=== PATIENT | male | born 1950 | race Caucasian/White ===

== ENCOUNTER 2019-04-10 18:26 | Emergency (ER) | payer OTHER ==
--- NOTE | 2019-04-10 18:57 | ED Physician Documentation ---
PD HPI UPPER EXT INJURY - Stated complaint Stated Complaint: RT ARM LAC - History obtained from History obtained from: Patient - History of Present Illness Location: Right, Arm Type of injury: Laceration (Accidentally cut RUE with knife while pruning at home at 1pm today. Tetanus UTD.) Review of Systems Constitutional: reports: Reviewed and negative Ears: reports: Reviewed and negative Nose: reports: Reviewed and negative PD PAST MEDICAL HISTORY - Past Medical History Cardiovascular: Hypertension, High cholesterol Respiratory: None Endocrine/Autoimmune: Type 2 diabetes GI: None : None HEENT: None Psych: None Musculoskeletal: None Derm: None - Past Surgical History Past Surgical History: Yes Ortho: Hip replacement Cardiovascular: Other - Present Medications Home Medications: Ambulatory Orders Medication Instructions Recorded Confirmed Atenolol [Tenormin] 1 mg PO DAILY 11/25/15 11/25/15 Ondansetron Odt [Zofran] 4 mg TL Q6H PRN #10 tablet 11/25/15 Pravastatin [Pravachol] 1 mg PO DAILY 11/25/15 11/25/15 Vit A Palm,D3 in Cod Liver Oil [Sv 1 mg PO DAILY 11/25/15 11/25/15 Cod Liver Oil Softgel] Warfarin [Coumadin] 7.5 mg PO DAILY 11/25/15 11/25/15 metFORMIN [Glucophage] 1 mg PO BID 11/25/15 11/25/15 Hydrocodone/Acetaminophen [[place] 1 each PO Q6H PRN #20 tablet 06/15/16 5-325 Tablet] Mupirocin 1 applic TP TID #15 oint...g. 06/15/16 - Allergies Allergies/Adverse Reactions: Allergies Allergy/AdvReac Type Severity Reaction Status Date / Time No Known Drug Allergies Allergy Verified 04/10/19 18:58 - Social History Does the pt smoke?: No Smoking Status: Never smoker Does the pt drink ETOH?: No Does the pt have substance abuse?: No - Immunizations Immunizations are current?: Yes - POLST Patient has POLST: No PD ED PE NORMAL - Vitals Vital signs reviewed: Yes - General General: Alert and oriented X 3, No acute distress - Extremities Extremities: Other (There is a 1.5 cm laceration basically over the medial epicondyle of the elbow, he has intact strength in flexion and extension of the wrist, interosseous strength, and individual flexion of all the fingers. He has normal sensation in all areas of the hand.) - Neuro Neuro: Alert and oriented X 3, Normal speech - Psych Psych: Normal mood, Normal affect Results - Vitals Vitals: Vital Signs - 24 hr 04/10/19 18:45 Temperature 36.9 C Heart Rate 74 Respiratory 16 Rate Blood Pressure 108/73 O2 Saturation 99 Oxygen O2 Source Room air Procedures - Laceration (location) R arm Length in cm: 1.5 Wound type: Linear Neurovascular status: Sensory intact, Motor intact, Vascular intact Anesthesia: Lidocaine 1% with epi Wound Preparation: Irrigated copiously NS Skin layer closure: Nylon, Interrupted, Size #-0 - enter number (4-0), Sutures - enter # (3) Other: Tetanus UTD Complexity: Simple Departure - Departure Disposition: 01 Home, Self Care Clinical Impression: Laceration Condition: Good Record reviewed to determine appropriate education?: Yes Instructions: ED Laceration All Comments: Come back for any signs of infection which would include: Redness, swelling, drainage, increased pain, or fevers. You can wash it soap and water. Keep it covered and moist with bacitracin ointment which is available over the counter; avoid neosporin. Follow-up with your physician in about 14 days for suture removal.
[2019-04-10] MEDS ORDERED: LIDOCAINE 1%-EPI 1:100000 20 ML MDV SUBQ STA (19:00)
[2019-04-10 19:27] VITALS: BP 113/79
== END 2019-04-10 19:26 | disposition home or self-care (01) ==
LOC: ED 18:26
DX: S51.011A Laceration without foreign body of right elbow, initial encounter (principal); W26.0XXA Contact with knife, initial encounter; Y93.H2 Activity, gardening and landscaping; Y92.007 Garden or yard of unspecified non-institutional (private) residence as the place of occurrence of the external cause; I10 Essential (primary) hypertension; E11.9 Type 2 diabetes mellitus without complications; Z79.84 Long term (current) use of oral hypoglycemic drugs
CPT/HCPCS: 12001; 99283

== ENCOUNTER 2019-04-16 11:42 | Emergency (ER) | payer OTHER ==
[2019-04-16 12:02] VITALS: BP 103/62
[2019-04-16] MEDS ORDERED: LIDOCAINE 1% 2 ML VIAL MC ONE (12:23)
[2019-04-16] MEDS ORDERED: cefTRIAXone 1 GM VIAL IM STA (12:23)
--- NOTE | 2019-04-16 12:32 | ED Physician Documentation ---
PD HPI WOUND RECHECK - Stated complaint Stated Complaint: RT ARM STITCH IRRITATION - Chief complaint Chief Complaint: Wound - Histroy obtained from History obtained from: Patient - History of Present Illness Location: Other (R elbow) Timing - onset: Today Pain level max: 3 Pain level now: 2 Associated symptoms: Redness, Swelling. No: Fever, Drainage, Pain - Additional information Additional information: Sutures were placed 4 days ago. Redness and swelling started today. No fevers. No chills. Review of Systems Constitutional: denies: Fever, Chills Musculoskeletal: denies: Neck pain, Back pain PD PAST MEDICAL HISTORY - Past Medical History Cardiovascular: Hypertension, High cholesterol Respiratory: None Neuro: None Endocrine/Autoimmune: Type 2 diabetes GI: None : None HEENT: None Psych: None Musculoskeletal: None Derm: None - Past Surgical History Past Surgical History: Yes Ortho: Hip replacement Cardiovascular: Other - Present Medications Home Medications: Ambulatory Orders Medication Instructions Recorded Confirmed Atenolol [Tenormin] 1 mg PO DAILY 11/25/15 11/25/15 Ondansetron Odt [Zofran] 4 mg TL Q6H PRN #10 tablet 11/25/15 Pravastatin [Pravachol] 1 mg PO DAILY 11/25/15 11/25/15 Vit A Palm,D3 in Cod Liver Oil [Sv 1 mg PO DAILY 11/25/15 11/25/15 Cod Liver Oil Softgel] Warfarin [Coumadin] 7.5 mg PO DAILY 11/25/15 11/25/15 metFORMIN [Glucophage] 1 mg PO BID 11/25/15 11/25/15 Hydrocodone/Acetaminophen [[place] 1 each PO Q6H PRN #20 tablet 06/15/16 5-325 Tablet] Mupirocin 1 applic TP TID #15 oint...g. 06/15/16 Clindamycin HCl [Clindamycin 300MG 300 mg PO Q6H #28 capsule 04/16/19 CAP] - Allergies Allergies/Adverse Reactions: Allergies Allergy/AdvReac Type Severity Reaction Status Date / Time No Known Drug Allergies Allergy Verified 04/16/19 11:58 - Social History Does the pt smoke?: No Smoking Status: Never smoker Does the pt drink ETOH?: No Does the pt have substance abuse?: No - Immunizations Immunizations are current?: Yes - POLST Patient has POLST: No PD ED PE NORMAL - Vitals Vital signs reviewed: Yes - General General: Alert and oriented X 3, No acute distress - HEENT HEENT: Moist mucous membranes - Neck Neck: Supple, no meningeal sign - Cardiac Cardiac: RRR - Respiratory Respiratory: No respiratory distress, Clear bilaterally - Derm Derm: Warm and dry - Extremities Extremities: Other (Right elbow - Medial aspect is erythematous, mild swelling. No drainage from the wound. 4 x 4 centimeter area of erythema surrounding this. No lymphangitic spread. No streaking. Full range of motion of the joint pre sent without pain) - Neuro Neuro: Alert and oriented X 3 - Psych Psych: Normal mood, Normal affect Results - Vitals Vitals: Vital Signs - 24 hr 04/16/19 11:58 Temperature 36.9 C Heart Rate 89 Respiratory 16 Rate Blood Pressure 103/62 O2 Saturation 98 Oxygen O2 Source Room air PD MEDICAL DECISION MAKING - ED course Complexity details: considered differential, d/w patient ED course: Patient with a cellulitis of the right elbow. We will leave the sutures in place for now as there is no drainage. Will give a injection of Rocephin here. Will start on clindamycin for home. Warnings of infection and instructions on wound care given at bedside. Also counseled on how to minimize scarring. Patient counseled regarding signs and symptoms for which I believe and urgent re-evaluation would be necessary. Patient with good understanding of and agreement to plan and is comfortable going home at this time This document was made in part using voice recognition software. While efforts are made to proofread this document, sound alike and grammatical errors may occur. Departure - Departure Disposition: 01 Home, Self Care Clinical Impression: Cellulitis Qualifiers: Site of cellulitis: extremity Site of cellulitis of extremity: upper extremity Laterality: right Qualified Code(s): L03.113 - Cellulitis of right upper limb Condition: Good Instructions: ED Infec Skin Cellulitis Follow-Up: your,doctor in 2-3 days for wound check [Other] Prescriptions: Clindamycin HCl [Clindamycin 300MG CAP] 300 mg PO Q6H #28 capsule Comments: Take all antibiotics until gone. Start the oral antibiotics today. Follow-up with your doctor in 2 to 3 days for wound check or return here. Return sooner if you develop fevers, chills or red streaks on the arm.
== END 2019-04-16 12:48 | disposition home or self-care (01) ==
LOC: ED 11:42
DX: L03.113 Cellulitis of right upper limb (principal); I10 Essential (primary) hypertension; E11.9 Type 2 diabetes mellitus without complications; Z79.84 Long term (current) use of oral hypoglycemic drugs
CPT/HCPCS: 96372; 99283; 99284

== ENCOUNTER 2019-04-29 19:30 | Emergency (ER) | payer OTHER ==
--- NOTE | 2019-04-29 20:01 | ED Physician Documentation ---
PD HPI Fall - Stated complaint Stated Complaint: FALL/R SHOULDER INJURY - Chief complaint Chief Complaint: Trauma Hd/Nk - History obtained from History obtained from: Patient - History of Present Illness Mechanism of injury: Tripped Fall distance: Standing position (fell going up steps and fell backward about 5 steps, onto right shoulderblade area mainly. Denies head injury directly but is concerned since on DOAC.) Timing - onset: Today Injury(ies) location: Head, Right Upper Extremity (scapular area) Quality of pain: Aching (shoulder, not having headache.) Associated symptoms: No: LOC, AMS, Weakness, Paresthesias Worsens with: Movement Contributing factors: Anticoagulated. No: Intoxicated Review of Systems Skin: denies: Abrasion (s), Laceration (s) Musculoskeletal: denies: Neck pain, Back pain Neurologic: denies: Focal weakness, Numbness, Altered mental status, Headache PD PAST MEDICAL HISTORY - Past Medical History Past Medical History: Yes Cardiovascular: Hypertension, High cholesterol Respiratory: None Neuro: None Endocrine/Autoimmune: Type 2 diabetes GI: None : None HEENT: None Psych: None Musculoskeletal: None Derm: None - Past Surgical History Past Surgical History: Yes Ortho: Hip replacement Cardiovascular: Other - Present Medications Home Medications: Ambulatory Orders Medication Instructions Recorded Confirmed Atenolol [Tenormin] 1 mg PO DAILY 11/25/15 11/25/15 Ondansetron Odt [Zofran] 4 mg TL Q6H PRN #10 tablet 11/25/15 Pravastatin [Pravachol] 1 mg PO DAILY 11/25/15 11/25/15 Vit A Palm,D3 in Cod Liver Oil [Sv 1 mg PO DAILY 11/25/15 11/25/15 Cod Liver Oil Softgel] Warfarin [Coumadin] 7.5 mg PO DAILY 11/25/15 11/25/15 metFORMIN [Glucophage] 1 mg PO BID 11/25/15 11/25/15 Hydrocodone/Acetaminophen [[place] 1 each PO Q6H PRN #20 tablet 06/15/16 5-325 Tablet] Mupirocin 1 applic TP TID #15 oint...g. 06/15/16 Clindamycin HCl [Clindamycin 300MG 300 mg PO Q6H #28 capsule 04/16/19 CAP] Hydrocodone/Acetaminophen [[place] 1 each PO Q6H PRN #15 tablet 04/29/19 5-325 Tablet] - Allergies Allergies/Adverse Reactions: Allergies Allergy/AdvReac Type Severity Reaction Status Date / Time No Known Drug Allergies Allergy Verified 04/29/19 19:37 - Social History Does the pt smoke?: No Smoking Status: Never smoker Does the pt drink ETOH?: No Does the pt have substance abuse?: Yes Substance Use and Type: Marijuana - Immunizations Immunizations are current?: Yes - POLST Patient has POLST: No PD ED PE NORMAL - Vitals Vital signs reviewed: Yes - General General: Alert and oriented X 3, No acute distress, Well developed/nourished - HEENT HEENT: Pharynx benign, Other (no noted tenderness on scalp. ) - Neck Neck: Supple, no meningeal sign, No bony TTP, No adenopathy - Cardiac Cardiac: RRR - Respiratory Respiratory: Clear bilaterally, Other (no chestwall tenderness) - Abdomen Abdomen: Soft, Non tender - Back Back: No CVA TTP, No spinal TTP - Derm Derm: Normal color, Warm and dry - Extremities Extremities: Other (right scapula with tenderness but no deformity. Shoulder joint itslef is not tender. No noted shoulder deformity. ) - Neuro Neuro: Alert and oriented X 3, No motor deficit, No sensory deficit, Normal speech Results - Vitals Vitals: Oxygen O2 Source Room air - Rads (name of study) head CT Radiology: Prelim report reviewed (no ICH nor acute findings. ), EMP read contemporaneously, See rad report chest CT Radiology: Prelim report reviewed (no noted fractures nor organ injury), See rad report PD MEDICAL DECISION MAKING - ED course Complexity details: reviewed results, considered differential (on DOAC and fell with force, so will get head CT, without concussive symptoms. Has pain and tender at scapula, which is harder to see on plain exray, so opted for CT chest to evaluate for fractures. ), d/w patient Departure - Departure Disposition: 01 Home, Self Care Clinical Impression: Anticoagulant long-term use Accidental fall Qualifiers: Encounter type: initial encounter Qualified Code(s): W19.XXXA - Unspecified fall, initial encounter Contusion of right scapular region Qualifiers: Encounter type: initial encounter Qualified Code(s): S40.011A - Contusion of right shoulder, initial encounter Condition: Stable Record reviewed to determine appropriate education?: Yes Instructions: ED Contusion Shoulder Follow-Up: [facility] [Provider Group] Prescriptions: Hydrocodone/Acetaminophen [[place] 5-325 Tablet] 1 each PO Q6H PRN #15 tablet PRN Reason: Pain Comments: Sling for the shoulder with gentle range of motion a few times a day to prevent stiffness. No fracture seen on your x-ray. Presume it some muscular and soft tissue injury. Continue usual medications. Tylenol 4 times a day if needed for pain. Add hydrocodone if needed for worse pain. Recheck with your primary care or orthopedics if the shoulder is not improved over the next several days to week. Discharge Date/Time: 04/29/19 23:53
[2019-04-29] MEDS ORDERED: ACETAMINOPHEN 325 MG TABLET PO STA (20:06)
--- NOTE | 2019-04-29 21:04 | CT Report ---
Reason: fall and landed right scapula. On Pradaxa Procedure Date: 04/29/2019 Accession Number: [id number] / [id number] Procedure: CT - HEAD WO CPT Code: FULL RESULT: EXAM: CT HEAD EXAM DATE: 04/29/2019 08:37 PM. CLINICAL HISTORY: Trauma COMPARISON: None. TECHNIQUE: Multiaxial CT images were obtained from the foramen magnum to the vertex. Reformats: Sagittal and coronal. IV contrast: None. In accordance with CT protocol optimization, one or more of the following dose reduction techniques were utilized for this exam: automated exposure control, adjustment of mA and/or KV based on patient size, or use of iterative reconstructive technique. FINDINGS: PARENCHYMA: No acute hemorrhage, transcortical infarction or mass. Periventricular and white matter hypointensities are nonspecific but most consistent with chronic microvascular ischemic changes. EXTRA-AXIAL SPACES: No extra-axial fluid collections. No midline shift. VENTRICLES/SULCI: Enlargement of the lateral and third ventricles with prominence of the cortical sulci consistent mild cerebral volume loss. VASCULAR STRUCTURES: Arterial calcifications consistent with atherosclerosis. SINUSES: The visible paranasal sinuses and mastoid air cells are unremarkable. ORBITS: Unremarkable. BONES: No displaced acute calvarial fracture. OTHER: None. IMPRESSION: 1. No acute intracranial findings. 2. Cerebral atrophy and chronic microvascular ischemic changes. RADIA
--- NOTE | 2019-04-29 21:58 | CT Report ---
Reason: fall and landed right scapula Procedure Date: 04/29/2019 Accession Number: [id number] / [id number] Procedure: CT - CHEST WO CPT Code: FULL RESULT: EXAM: CT CHEST EXAM DATE: 04/29/2019 08:39 PM. CLINICAL HISTORY: Trauma. COMPARISONS: None. TECHNIQUE: Routine helical CT imaging was performed through the chest. IV contrast: None. Reconstructions: Coronal and sagittal. In accordance with CT protocol optimization, one or more of the following dose reduction techniques were utilized for this exam: automated exposure control, adjustment of mA and/or KV based on patient size, or use of iterative reconstructive technique. FINDINGS: Bones: No acute fracture. No suspicious osseous lesions. Resection of the left proximal clavicle and anterior aspect of the first rib. Sidewalls: Absence of the left pectoralis major muscle. Thyroid: The imaged thyroid is unremarkable. Heart: Advanced three-vessel coronary artery disease. Mediastinum: Unremarkable. Esophagus: Grossly unremarkable. Aorta: The ascending thoracic aorta is ectatic measuring up to 4.5 cm. The descending thoracic aorta is normal in caliber. Mild atherosclerosis. Pulmonary Arteries: The main pulmonary artery is normal in caliber. Central Airways: The trachea and central airways are patent. Lungs: There are a few scattered 1-2 mm solid pulmonary nodules. Pneumatoceles within the left lower lobe. Otherwise unremarkable. Pleura: No pleural effusion. No pneumothorax. Lymph nodes: No thoracic lymphadenopathy. Imaged abdomen: Nonobstructing right renal parenchymal calcification. Moderate atherosclerosis of the imaged abdominal aorta. Large volume stool throughout the imaged colon. IMPRESSION: 1. No acute fracture. 2. Status post resection of the left anterior first rib, proximal clavicle and the left pectoralis major muscle. 3. Advanced three-vessel coronary artery disease. 4. 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 5. There are a few scattered 1-2 mm solid pulmonary nodules. See below for recommendations. RECOMMENDATIONS: Recommend follow-up of the described nodule(s) according to the following guidelines: Fleischner Society Recommendations 2017 MacMahon et al. Radiology 2017 Solid Nodules-Low Risk Patients: <6 mm (single or multiple) - No routine follow-up* 6-8 mm (single) -CT at 6-12 months, then consider CT at 18-24 months 6-8mm (multiple) -CT at 3-6 months, then consider at CT 18-24 months >8 mm (single) -Consider CT, PET/CT, or tissue sampling at 3 months >8 mm (multiple) -CT at 3-6 months, then consider CT at 18-24 months Solid Nodules-High Risk Patients: <6 mm (single or multiple) -Optional CT at 12 months* 6-8 mm (single) -CT at 6-12 months, then CT at 18-24 months 6-8mm (multiple) -CT at 3-6 months, then CT at 18-24 months >8 mm (single) -Consider CT, PET/CT, or tissue sampling at 3 months >8 mm (multiple) -CT at 3-6 months, then at 18-24 months *Nodules < 6mm do not require routine follow-up, but suspicious nodule morphology, upper lobe location, or both may warrant 12 month follow-up IRENEA
[2019-04-29] MEDS ORDERED: HYDROcod/ACET 5/325 Prepack 4 PO STA (23:13)
[2019-04-29 23:50] VITALS: BP 109/69
== END 2019-04-29 23:53 | disposition home or self-care (01) ==
LOC: ED 19:30
DX: S40.011A Contusion of right shoulder, initial encounter (principal); W10.9XXA Fall (on) (from) unspecified stairs and steps, initial encounter; Y93.01 Activity, walking, marching and hiking; Z79.01 Long term (current) use of anticoagulants; I10 Essential (primary) hypertension; E11.9 Type 2 diabetes mellitus without complications; Z79.84 Long term (current) use of oral hypoglycemic drugs
CPT/HCPCS: 70450; 71250; 99284; A9270

== ENCOUNTER 2020-01-22 15:30 | Emergency (ER) | payer OTHER ==
[2020-01-22] MEDS ORDERED: fentaNYL 100 MCG/2 ML VIAL IVP STA ×3 (15:43→18:39)
--- NOTE | 2020-01-22 15:46 | ED Physician Documentation ---
PD HPI Fall - Stated complaint Stated Complaint: FALL FROM LADDER, BILAT LEG PAIN - Chief complaint Chief Complaint: Trauma Ext - History obtained from History obtained from: Patient - History of Present Illness Fall distance: 5 to 10ft Timing - onset: Today - Additional information Additional information: 69-year-old gentleman on Pradaxa for atrial fibrillation fell about 6 feet off a ladder. He says he fell directly on his heels and his heels were excruciatingly painful. He told the nurse he did not hit his head but tells me he did hit his head. He vacillates whether or not he has back pain. He is almost inconsolable from the lower extremity pain. Review of Systems Ten Systems: 10 systems reviewed and negative Throat: reports: Reviewed and negative Cardiac: reports: Reviewed and negative Respiratory: reports: Reviewed and negative PD PAST MEDICAL HISTORY - Past Medical History Cardiovascular: Hypertension, High cholesterol Respiratory: None Neuro: None Endocrine/Autoimmune: Type 2 diabetes GI: None : None HEENT: None Psych: None Musculoskeletal: None Derm: None - Past Surgical History Past Surgical History: Yes Ortho: Hip replacement Cardiovascular: Other - Present Medications Home Medications: Ambulatory Orders Medication Instructions Recorded Confirmed Ondansetron Odt [Zofran] 4 mg TL Q6H PRN #10 tablet 11/25/15 Pravastatin [Pravachol] 1 mg PO DAILY 11/25/15 11/25/15 Vit A Palm,D3 in Cod Liver Oil [Sv 1 mg PO DAILY 11/25/15 11/25/15 Cod Liver Oil Softgel] Warfarin [Coumadin] 7.5 mg PO DAILY 11/25/15 11/25/15 atenoloL [Tenormin] 1 mg PO DAILY 11/25/15 11/25/15 metFORMIN [Glucophage] 1 mg PO BID 11/25/15 11/25/15 Hydrocodone/Acetaminophen [[place] 1 each PO Q6H PRN #20 tablet 06/15/16 5-325 Tablet] Mupirocin 1 applic TP TID #15 oint...g. 06/15/16 Clindamycin HCl [Clindamycin 300MG 300 mg PO Q6H #28 capsule 04/16/19 CAP] Hydrocodone/Acetaminophen [[place] 1 each PO Q6H PRN #15 tablet 04/29/19 5-325 Tablet] - Allergies Allergies/Adverse Reactions: Allergies Allergy/AdvReac Type Severity Reaction Status Date / Time No Known Drug Allergies Allergy Verified 01/22/20 15:36 - Social History Does the pt smoke?: No Smoking Status: Never smoker Does the pt drink ETOH?: No Does the pt have substance abuse?: Yes - Family History Family history: reports: Non contributory - Immunizations Immunizations are current?: Yes - POLST Patient has POLST: No PD ED PE NORMAL - Vitals Vital signs reviewed: Yes - General General: Alert and oriented X 3, Other (He is crying and in a lot of pain) - HEENT HEENT: PERRL, EOMI - Neck Neck: No bony TTP (But placed in a c-collar pending imaging given distracting injury) - Respiratory Respiratory: No respiratory distress, Clear bilaterally - Abdomen Abdomen: Non tender - Back Back: No spinal TTP - Extremities Extremities: Other (Profoundly tender about both calcanei without obvious deformity, sequela of prior knee replacements without tenderness or limited ra nge of motion at the knees.) - Neuro Neuro: Alert and oriented X 3, Normal speech Eye Opening: Spontaneous Motor: Obeys Commands Results - Vitals Vitals: Vital Signs - 24 hr 01/22/20 01/22/20 01/22/20 15:31 16:00 16:30 Temperature 36.7 C Heart Rate 122 H 126 H 93 Respiratory 26 H 15 16 Rate Blood Pressure 149/98 H 119/83 H 131/71 H O2 Saturation 99 96 96 01/22/20 01/22/20 01/22/20 17:00 17:30 18:00 Temperature 37 C Heart Rate 115 H 120 H 118 H Respiratory 15 20 16 Rate Blood Pressure 123/85 H 135/97 H 142/88 H O2 Saturation 100 94 95 Oxygen O2 Source Room air - Labs Labs: Laboratory Tests 01/22/20 01/22/20 01/22/20 15:45 15:45 17:36 WBC 8.8 RBC 4.31 L Hgb 14.2 Hct 41.5 L MCV 96.3 H MCH 32.9 H MCHC 34.2 RDW 13.6 Plt Count 234 MPV 9.5 Neut # (Auto) 4.7 Lymph # (Auto) 3.2 [place] # (Auto) 0.7 Eos # (Auto) 0.1 Baso # (Auto) 0.1 Absolute Nucleated RBC 0.00 Nucleated RBC % 0.0 Sodium 134 L Potassium 4.9 Chloride 99 L Carbon Dioxide 20 L Anion Gap 15.0 H BUN 20 Creatinine 1.1 Estimated GFR (MDRD) 66 L Glucose 200 H Calcium 9.4 Total Bilirubin 1.3 H AST 37 ALT 21 Alkaline Phosphatase 76 Total Protein 7.8 Albumin 4.4 Globulin 3.4 Albumin/Globulin Ratio 1.3 Lipase 36 Urine Color YELLOW Urine Clarity CLEAR Urine pH 7.0 Ur Specific [place] <=1.005 Urine Protein NEGATIVE Urine Glucose (UA) NEGATIVE Urine Ketones NEGATIVE Urine Occult Blood NEGATIVE Urine Nitrite NEGATIVE Urine Bilirubin NEGATIVE Urine Urobilinogen 0.2 (NORMAL) Ur Leukocyte Esterase NEGATIVE Ur Microscopic Review NOT INDICATED Urine Culture Comments NOT INDICATED - Rads (name of study) CT Head Radiology: EMP read contemporaneously (NAD) CT C spine Radiology: EMP read contemporaneously (multileve DJD/DDD, NAD) CT T/L Spine Radiology: EMP read contemporaneously (DISH and DDD/DJD, NAD) CT Chest/abd/pelv Radiology: EMP read contemporaneously (Mildly dilated aortic root, right nephrolithiasis, atherosclerosis with celiac artery stenosis, no acute traumatic disease.) CT of both calcanei Radiology: EMP read contemporaneously (Acute fracture of the inferior medial right calcaneus involving the plantar fascial origin and 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 The left calcaneus is highly comminuted with not much displacement.) Procedures - Splint (location) BLE Splint applied by: Tech (Both lower legs and ankles were placed in bulky Olivares splints by the tech.) PD MEDICAL DECISION MAKING - ED course ED course: 69-year-old gentleman with a fall from height, he is anticoagulated. High suspicion for bilateral calcaneal injuries based on his presentation and exam, also high suspicion for other injuries given the fall from height, anticoagulated status, and high mechanism. CT "pierre scan was done as well as CTs of both calcanei. No traumatic injuries other than the calcanei. The calcanei will be very difficult to treat especially given the significant comminution of the left. He was placed in bilateral bulky Olivares dressings, pain was controlled with divided doses of narcotics. He was in atrial fibrillation with rapid ventricular response and administered 5 mg of IV metoprolol. Accepted by Dr. Santiago to [facility] ER at approximately 5:40 PM. [place] were completed. He is stable for transport. - Critical Care Time(min): 40 Time Includes: Direct patient care, Review records, Reassess patient, Document care, Coordinate care, Medical consult, Family consult for tx dec Data interpretation: Labs, Pulse ox Procedures included in critical care time: Peripheral IV Departure - Departure Disposition: 02 Transfer Acute Care Hosp Clinical Impression: Adequate anticoagulation on anticoagulant therapy, Fall from height of greater than 3 feet, Atrial fibrillation with rapid ventricular response Right calcaneal fracture Qualifiers: Encounter type: initial encounter Calcaneus location: unspecified portion of calcaneus Fracture type: closed Fracture alignment: displaced Qualified Code(s): S92.001A - Unspecified fracture of right calcaneus, initial encounter for closed fracture Left calcaneal fracture Qualifiers: Encounter type: initial encounter Calcaneus location: unspecified portion of calcaneus Fracture type: closed Fracture alignment: displaced Qualified Code(s): S92.002A - Unspecified fracture of left calcaneus, initial encounter for closed fracture Condition: Serious
[2020-01-22 15:53] LABS: BASOPHILS # (AUTO) 0.1 10^3/uL (0.0-0.1); BASOPHILS % (AUTO) 0.6 %; EOSINOPHILS # (AUTO) 0.1 10^3/uL (0.0-0.7); EOSINOPHILS % (AUTO) 0.7 %; HGB - HEMOGLOBIN 14.2 g/dL (14.0-18.0); LYMPHOCYTES # (AUTO) 3.2 10^3/uL (1.5-3.5); LYMPHOCYTES % (AUTO) 36.1 %; MEAN CORPUSCULAR HEMOGLOBIN 32.9 pg (27.0-31.0); MEAN CORPUSCULAR HGB CONC 34.2 g/dL (32.0-36.0); MEAN CORPUSCULAR VOLUME 96.3 fL (80.0-94.0); MEAN PLATELET VOLUME 9.5 fL (7.4-11.4); MONOCYTES # (AUTO) 0.7 10^3/uL (0.0-1.0); MONOCYTES % (AUTO) 8.3 %; NEUTROPHILS # (AUTO) 4.7 10^3/uL (1.5-6.6); PLT - PLATELET COUNT 234 10^3/uL (130-450); RED BLOOD COUNT 4.31 10^6/uL (4.70-6.10); RED CELL DISTRIBUTION WIDTH 13.6 % (12.0-15.0); WHITE BLOOD COUNT 8.8 x10^3/uL (4.8-10.8)
[2020-01-22 16:03] LABS: ALBUMIN 4.4 g/dL (3.2-5.5); ALBUMIN/GLOBULIN RATIO 1.3 (1.0-2.2); BILIRUBIN,TOTAL 1.3 mg/dL (0.2-1.0); CALCIUM 9.4 mg/dL (8.5-10.3); CREATININE 1.1 mg/dL (0.6-1.2); TOTAL PROTEIN 7.8 g/dL (6.7-8.2)
[2020-01-22] MEDS ORDERED: IOVERSOL 320 100 ML VIAL IVP ONE ×2 (16:09→19:46)
[2020-01-22] MEDS ORDERED: HYDROmorphone 1 MG/ML CARPUJECT IVP STA (16:37)
--- NOTE | 2020-01-22 17:25 | CT Report ---
Reason: fall from height, multisystem trauma Procedure Date: 01/22/2020 Accession Number: [id number] / [id number] Procedure: CT - HEAD WO CPT Code: Final Report FULL RESULT: EXAM: CT HEAD EXAM DATE: 01/22/2020 04:51 PM. CLINICAL HISTORY: Fall from height, multisystem trauma. Posterior head pain. COMPARISON: HEAD W/O 04/29/2019 8:21 PM. TECHNIQUE: Multiaxial CT images were obtained from the foramen magnum to the vertex. Reformats: Sagittal and coronal. IV contrast: None. In accordance with CT protocol optimization, one or more of the following dose reduction techniques were utilized for this exam: automated exposure control, adjustment of mA and/or KV based on patient size, or use of iterative reconstructive technique. FINDINGS: Parenchyma: No acute intracranial abnormality identified. No acute hemorrhage, mass-effect, or midline shift. Probable age-related diffuse parenchymal volume loss. Minimal low attenuation in the periventricular white matter. Velazquez-white differentiation appears maintained. Extraaxial Spaces: No acute extra-axial collection. Ventricles: Appropriate in size and configuration. Sinuses and Orbits: Imaged paranasal sinuses, orbits, and mastoids show no significant abnormality. Bones: No depressed skull fracture. Other: None. IMPRESSION: No acute intracranial abnormality identified. No significant change. RADIA
--- NOTE | 2020-01-22 17:31 | CT Report ---
Reason: fall from height, multisystem trauma Procedure Date: 01/22/2020 Accession Number: [id number] / [id number] Procedure: CT - CERVICAL SPINE WO CPT Code: Final Report FULL RESULT: EXAM: CT CERVICAL SPINE WITHOUT CONTRAST DATE: 01/22/2020 04:51 PM. HISTORY: Fall from height, multisystem trauma. COMPARISONS: HEAD W/O 04/29/2019 8:21 PM. TECHNIQUE: Thin-section axial images were acquired of the cervical spine without contrast. Post-processing: Coronal and sagittal reformats. Other: None. In accordance with CT protocol optimization, one or more of the following dose reduction techniques were utilized for this exam: automated exposure control, adjustment of mA and/or KV based on patient size, or use of iterative reconstructive technique. FINDINGS: Alignment: No scoliosis or spondylolisthesis. Bones: Multilevel degenerative changes. No fractures. Interspace Levels/Facets: C1-C2: Severe arthropathy, particularly along the left atlantooccipital joint. C2-C3: Ankylosis of the C2 and C3 vertebral bodies, and some ankylosis of the posterior elements as well. No central canal or neural foraminal stenosis. C3-C4: Anterior and posterior disk osteophyte complexes. There is mild central canal stenosis. Moderate to severe bilateral facet disease, with the ankylosis. Minimal bilateral neural foraminal stenosis. C4-C5: Moderate to severe left facet disease and uncovertebral hypertrophy. Moderate to severe left neural foraminal stenosis and some left lateral recess stenosis. C5-C6: Minimal disk height loss. Moderate severe bilateral facet disease. Mild to moderate bilateral neural foraminal stenosis. C6-C7: Moderate to severe disk height loss with anterior and posterior disk osteophyte complexes. Minimal central canal stenosis. Bilateral facet disease, more on the left, no significant neural foraminal stenosis. C7-T1: Moderate severe disk height loss. Mild bilateral facet disease. Mild to moderate left neuroforaminal stenosis. Musculature: Normal. No fatty atrophy. Other: The paravertebral and prevertebral soft tissues are unremarkable. The lung apices are clear. IMPRESSION: No fracture or subluxation. RADIA
--- NOTE | 2020-01-22 17:35 | CT Report ---
Reason: fall from height, multisystem trauma Procedure Date: 01/22/2020 Accession Number: [id number] / [id number] Procedure: CT - Abdomen/Pelvis W CPT Code: Final Report FULL RESULT: EXAM: CT ABDOMEN AND PELVIS EXAM DATE: 01/22/2020 04:51 PM. CLINICAL HISTORY: Fall from ladder. Multisystem trauma. COMPARISONS: None. TECHNIQUE: Routine helical CT imaging was performed through the abdomen and pelvis. IV contrast: 100 cc of Optiray 320. Enteric contrast: No. Reconstructions: Coronal and sagittal. In accordance with CT protocol optimization, one or more of the following dose reduction techniques were utilized for this exam: automated exposure control, adjustment of mA and/or KV based on patient size, or use of iterative reconstructive technique. FINDINGS: Liver: Normal. No masses. Gallbladder/Bile Ducts: Unremarkable. Spleen: Normal. Pancreas: Normal. Adrenal Glands: Normal. Kidneys: Nonobstructing 4 mm intrarenal stone, mid right kidney, otherwise unremarkable. Peritoneal Cavity/Bowel: Normal. No free fluid, free air or adenopathy. No masses or acute inflammatory process. The appendix is well visualized and normal. Pelvic Organs: Normal. The bladder and visualized pelvic organs are within normal limits. Vasculature: No aortic aneurysm. Mild to moderate atherosclerotic calcification. 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 Bones: No fracture identified. Fused SI joints noted. Degenerative disk disease at L4-L5. Lower lumbar facet arthropathy. Other: None. IMPRESSION: 1. No acute abnormalities of the abdomen and pelvis. 2. Right nephrolithiasis. 3. 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 4. Degenerative disk disease, L4-L5. RADIA
--- NOTE | 2020-01-22 17:40 | CT Report ---
Reason: fall from height, multisystem trauma Procedure Date: 01/22/2020 Accession Number: [id number] / [id number] Procedure: CT - THORACIC SPINE WO CPT Code: Final Report FULL RESULT: EXAM: CT THORACIC SPINE WITHOUT CONTRAST EXAM DATE: 01/22/2020 04:51 PM. CLINICAL HISTORY: Fall from ladder. Multisystem trauma. COMPARISONS: None. TECHNIQUE: Thin-section axial images were acquired of the thoracic spine from C7 to L1 without contrast. Post-processing: Coronal and sagittal reformats. Other: None. In accordance with CT protocol optimization, one or more of the following dose reduction techniques were utilized for this exam: automated exposure control, adjustment of mA and/or KV based on patient size, or use of iterative reconstructive technique. FINDINGS: Alignment: No scoliosis or spondylolisthesis. Bones: No fractures. DISH. Rigid spine T6-T11 with anterior hyperostosis and fusion. Disk Levels/Facets: Endplate spurring. Mild scattered disk space narrowing. Other: See CT chest report. IMPRESSION: 1. No acute thoracic spine abnormalities. 2. DISH, with rigid spine T6-T11. RADIA
--- NOTE | 2020-01-22 17:42 | CT Report ---
Reason: fall from height, multisystem trauma Procedure Date: 01/22/2020 Accession Number: [id number] / [id number] Procedure: CT - CHEST W CPT Code: Final Report FULL RESULT: EXAM: CT CHEST EXAM DATE: 01/22/2020 04:51 PM. CLINICAL HISTORY: Fall from ladder COMPARISONS: CHEST W/O 04/29/2019 8:24 PM ABDOMEN/PELVIS W 01/22/2020 4:12 PM. TECHNIQUE: Routine helical CT imaging was performed through the chest. IV contrast: 100 mL Optiray 320. Reconstructions: Coronal and sagittal. In accordance with CT protocol optimization, one or more of the following dose reduction techniques were utilized for this exam: automated exposure control, adjustment of mA and/or KV based on patient size, or use of iterative reconstructive technique. FINDINGS: Lungs/Pleura: No consolidation, pleural effusion or pneumothorax. Cystic abnormality in the left lower lobe is unchanged. Bibasilar reticulation is unchanged. Mediastinum: The heart is normal in size. Prominent three-vessel coronary calcifications. No lymphadenopathy. No aortic dissection. Mild dilated aortic root measures about 4.6 cm. Bones: No acute fracture identified. Old deformity her resection of the left clavicle medially, as before. Prior partial resection of the left first rib. Healing fracture of the anterior aspect left sixth rib. There are fused anterior syndesmophytes in the mid and lower thoracic spine. Visualized Abdomen: See separately dictated CT. Other: None. IMPRESSION: 1. No acute abnormality. 2. Mildly dilated aortic root. RADIA
--- NOTE | 2020-01-22 17:44 | CT Report ---
Reason: fall from height, multisystem trauma Procedure Date: 01/22/2020 Accession Number: [id number] / [id number] Procedure: CT - LUMBAR SPINE WO CPT Code: Final Report FULL RESULT: EXAM: CT LUMBAR SPINE WITHOUT CONTRAST EXAM DATE: 01/22/2020 04:51 PM. CLINICAL HISTORY: Fall from ladder. Multisystem trauma. COMPARISONS: None. TECHNIQUE: Thin-section axial images were acquired of the lumbar spine from T12 to S1 without contrast. Post-processing: Coronal and sagittal reformats. Other: None. In accordance with CT protocol optimization, one or more of the following dose reduction techniques were utilized for this exam: automated exposure control, adjustment of mA and/or KV based on patient size, or use of iterative reconstructive technique. FINDINGS: Alignment: No scoliosis or spondylolisthesis. Bones: Five [id number] lumbar vertebral bodies are present. No fractures. Articulating transverse processes at L1. Disk Levels/Facets: T12-L1: Unremarkable. L1-L2: Unremarkable. L2-L3: Unremarkable. L3-L4: Unremarkable. L4-L5: Moderate disk space narrowing. Bilateral facet arthropathy. L5-S1: Bilateral facet arthropathy. Musculature: Normal. No fatty atrophy. Other: See CT abdomen/pelvis report. IMPRESSION: 1. No acute lumbar spine abnormalities. 2. Moderate degenerative disk disease at L4-L5. 3. Lower lumbar facet arthropathy. RADIA
[2020-01-22 17:47] LABS: BILIRUBIN,URINE NEGATIVE (NEGATIVE); GLUCOSE, URINE (UA) NEGATIVE (NEGATIVE); KETONES,URINE (UA) NEGATIVE (NEGATIVE); LEUKOCYTE ESTERASE, URINE NEGATIVE (NEGATIVE); NITRITE,URINE NEGATIVE (NEGATIVE); OCCULT BLOOD,URINE NEGATIVE (NEGATIVE); PROTEIN,URINE NEGATIVE (NEGATIVE); UROBILINOGEN,URINE 0.2 (NORMAL) E.U./dL (NORMAL)
[2020-01-22 17:48] LABS: CLARITY,URINE CLEAR (CLEAR)
[2020-01-22] MEDS ORDERED: METOPROLOL 5 MG/5 ML VIAL IVP STA (17:51)
--- NOTE | 2020-01-22 18:26 | CT Report ---
Reason: Left calcaneus injury Procedure Date: 01/22/2020 Accession Number: [id number] / [id number] Procedure: CT - LOWER EXTREMITY WO - LT CPT Code: Final Report FULL RESULT: EXAM: LEFT ANKLE/HINDFOOT CT WITHOUT CONTRAST EXAM DATE: 01/22/2020 04:51 PM. CLINICAL HISTORY: Left calcaneus injury. COMPARISON: None. TECHNIQUE: Thin-section axial images were acquired of the ankle/hindfoot without contrast. Post-processing: Coronal and sagittal reformats. Other: None. In accordance with CT protocol optimization, one or more of the following dose reduction techniques were utilized for this exam: automated exposure control, adjustment of mA and/or KV based on patient size, or use of iterative reconstructive technique. FINDINGS: Bones: The patient has an old healed fracture of the distal right tibia. The patient has a highly comminuted fracture of the calcaneus. Fracture lines extend into the posterior subtalar joint, the middle subtalar joint and the calcaneocuboid joint. The majority of the fracture fragments are nondisplaced. The plantar fascial origin is but nondisplaced. A moderate-sized plantar calcaneal spur is present. Joints: The joint spaces are preserved. No calcified loose bodies. No large effusion. Musculature: Normal. No fatty atrophy. Other: Arterial calcifications indicate atherosclerosis. Calcific tendinosis is at the Achilles insertion. IMPRESSION: Highly comminuted fracture of the left calcaneus with little displacement. RADIA
--- NOTE | 2020-01-22 18:31 | CT Report ---
Reason: Right calcaneus injury Procedure Date: 01/22/2020 Accession Number: [id number] / [id number] Procedure: CT - LOWER EXTREMITY WO - RT CPT Code: Final Report FULL RESULT: EXAM: RIGHT ANKLE CT WITHOUT CONTRAST EXAM DATE: 01/22/2020 04:51 PM. CLINICAL HISTORY: Right calcaneus injury. Fall from ladder today. Bilateral heel pain. COMPARISON: None. TECHNIQUE: Thin-section axial images were acquired of the ankle without contrast. Post-processing: Coronal and sagittal reformats. Other: None. In accordance with CT protocol optimization, one or more of the following dose reduction techniques were utilized for this exam: automated exposure control, adjustment of mA and/or KV based on patient size, or use of iterative reconstructive technique. FINDINGS: Bones: There appears to be an old healed fracture of the distal fifth metatarsal. The distal tibial diaphysis has an old healed fracture that has healed with 40% offset in the anterior to posterior plane. A moderate-sized plantar calcaneal spur is present. The right calcaneus is fractured on the inferior medial side involving the plantar fascia origin. The fragment is only displaced anteriorly by 3 mm (series 15, image 55). The patient is moderately osteopenic. Joints: The anterior subtalar joint has severe joint space narrowing, severe osteophyte formation, and periarticular cyst formation. There is also ossicle at the intersection of the cuboid, calcaneus, navicular, and talus with degenerative change around the ossicle. Periarticular cyst formation is in the distal tibia. Musculature: Normal. No fatty atrophy. Other: Arterial calcifications indicate atherosclerosis. IMPRESSION: 1. Acute fracture of the inferior medial right calcaneus involving the plantar fascia origin. 2. 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 RADIA
[2020-01-22 19:12] VITALS: BP 130/87
== END 2020-01-22 19:19 | disposition short-term general hospital (02) ==
LOC: ED 15:30
DX: S92.001A Unspecified fracture of right calcaneus, initial encounter for closed fracture (principal); S92.002A Unspecified fracture of left calcaneus, initial encounter for closed fracture; W11.XXXA Fall on and from ladder, initial encounter; I48.91 Unspecified atrial fibrillation; Z79.01 Long term (current) use of anticoagulants; M19.071 Primary osteoarthritis, right ankle and foot; M76.62 Achilles tendinitis, left leg; M50.30 Other cervical disc degeneration, unspecified cervical region; M48.02 Spinal stenosis, cervical region; M51.36 Other intervertebral disc degeneration, lumbar region; M48.14 Ankylosing hyperostosis [Forestier], thoracic region; I10 Essential (primary) hypertension; E11.9 Type 2 diabetes mellitus without complications; Z79.84 Long term (current) use of oral hypoglycemic drugs; Z96.653 Presence of artificial knee joint, bilateral
CPT/HCPCS: 36415; 70450; 71260; 72125; 72128; 72131; 73700; 74177; 80053; 81003; 83690; 85025; 96374; 96375; 96376; 99285; 99291; J1170; Q9967; 81001; 87086

== ENCOUNTER 2020-01-22 19:21 | Outpatient (CLI) | payer OTHER | END 2020-01-22 19:22 | disposition short-term general hospital (02) | LOC: EMS 19:21 | PROVIDERS: ATTEND Surgery | DX: S92.002A Unspecified fracture of left calcaneus, initial encounter for closed fracture (principal); S92.001A Unspecified fracture of right calcaneus, initial encounter for closed fracture; W11.XXXA Fall on and from ladder, initial encounter | CPT/HCPCS: A0425; A0426 ==

== ENCOUNTER 2020-09-10 09:04 | Emergency (ER) | payer OTHER ==
--- NOTE | 2020-09-10 09:49 | ED Physician Documentation ---
PD HPI NECK PAIN - Stated complaint Stated Complaint: NECK PX - Chief complaint Chief Complaint: General - History obtained from History obtained from: Patient - History of Present Illness Timing - onset: How many days ago (several days left sided neck pain up to occipital area. Worse with ROM. No skin rash nor sores, no fever. Has had neck pain similarly for several months since fall injury earlier in the year. No new injury but pain increased recently. No radiation to arms, nor arm weakness/numbness.) Timing - details: Gradual onset, Waxing and waning Location: Upper, Mid, Left Quality: Pain, Spasm. No: Tearing, Aching Associated symptoms: No: Fever, Weakness, Numbness Contributing factors: Trauma (earlier in the year with normal CT at that time.). No: Lifting, Twisting Similar symptoms before: No diagnosis (neck pain at times) Recently seen: Not recently seen Review of Systems Constitutional: denies: Fever, Chills Nose: denies: Rhinorrhea / runny nose, Congestion Throat: denies: Sore throat Respiratory: denies: Cough GI: denies: Abdominal Pain, Nausea, Vomiting, Diarrhea Skin: denies: Rash Musculoskeletal: reports: Neck pain. denies: Back pain Neurologic: denies: Focal weakness, Numbness, Altered mental status, Headache PD PAST MEDICAL HISTORY - Past Medical History Cardiovascular: Hypertension, High cholesterol Respiratory: None Neuro: None Endocrine/Autoimmune: Type 2 diabetes GI: None : None HEENT: None Psych: None Musculoskeletal: None Derm: None - Past Surgical History Past Surgical History: Yes Ortho: Hip replacement Cardiovascular: Other - Present Medications Home Medications: Ambulatory Orders Medication Instructions Recorded Confirmed Ondansetron Odt [Zofran] 4 mg TL Q6H PRN #10 tablet 11/25/15 Pravastatin [Pravachol] 1 mg PO DAILY 11/25/15 11/25/15 Vit A Palm,D3 in Cod Liver Oil [Sv 1 mg PO DAILY 11/25/15 11/25/15 Cod Liver Oil Softgel] Warfarin [Coumadin] 7.5 mg PO DAILY 11/25/15 11/25/15 atenoloL [Tenormin] 1 mg PO DAILY 11/25/15 11/25/15 metFORMIN [Glucophage] 1 mg PO BID 11/25/15 11/25/15 Hydrocodone/Acetaminophen [[place] 1 each PO Q6H PRN #20 tablet 06/15/16 5-325 Tablet] Mupirocin 1 applic TP TID #15 oint...g. 06/15/16 Clindamycin HCl [Clindamycin 300MG 300 mg PO Q6H #28 capsule 04/16/19 CAP] Hydrocodone/Acetaminophen [[place] 1 each PO Q6H PRN #15 tablet 04/29/19 5-325 Tablet] HYDROcod/ACETAM 5/325 [[place] 5/325] 1 ea PO Q6H PRN #15 tablet 09/10/20 dexAMETHasone [Decadron] 4 mg PO DAILY #5 tablet 09/10/20 tiZANidine [Zanaflex] 4 mg PO BID PRN #20 tablet 09/10/20 - Allergies Allergies/Adverse Reactions: Allergies Allergy/AdvReac Type Severity Reaction Status Date / Time No Known Drug Allergies Allergy Verified 09/10/20 09:18 - Social History Does the pt smoke?: No Smoking Status: Never smoker Does the pt drink ETOH?: No Does the pt have substance abuse?: Yes - Immunizations Immunizations are current?: Yes - POLST Patient has POLST: No PD ED PE NORMAL - Vitals Vital signs reviewed: Yes - General General: Alert and oriented X 3, No acute distress (but does appear uncomfortable with ROM of the neck. Tender left upper neck muscle. No trigger point per se. No rash nor redness. ), Well developed/nourished - Neck Neck: Supple, no meningeal sign, No adenopathy - Cardiac Cardiac: RRR, No murmur - Respiratory Respiratory: Clear bilaterally - Derm Derm: Normal color, Warm and dry, No rash - Neuro Neuro: Alert and oriented X 3, No motor deficit, No sensory deficit, Normal speech Results - Vitals Vitals: Oxygen O2 Source Room air - Rads (name of study) cervical CT Radiology: Prelim report reviewed (arthritic changes; no acute process), See rad report PD MEDICAL DECISION MAKING - ED course Complexity details: reviewed results, considered differential, d/w patient Departure - Departure Disposition: 01 Home, Self Care Clinical Impression: Neck pain, Arthritis of neck Condition: Stable Record reviewed to determine appropriate education?: Yes Instructions: ED Neck Back Pain General Prescriptions: dexAMETHasone [Decadron] 4 mg PO DAILY #5 tablet HYDROcod/ACETAM 5/325 [[place] 5/325] 1 ea PO Q6H PRN #15 tablet PRN Reason: Pain tiZANidine [Zanaflex] 4 mg PO BID PRN #20 tablet PRN Reason: Spasms Comments: Your CT scan showed arthritic changes without any acute bony changes. We will assume arthritis in the neck is causing some ear pain as well as some muscle irritation. We will try some anti-inflammatories for several days. Since you are on a blood thinner, will we will use steroid anti-inflammatories rather than NSAIDs. This may cause a rise in your blood sugar, and if it does then you can just discontinue the steroid. Otherwise use Tylenol every 4-6 hours if needed for pain or hydrocodone if needed for worse pain. Add tizanidine if needed for spasms and stiffness. Recheck if not improved over the next several days to a week and follow-up with your primary care. Discharge Date/Time: 09/10/20 11:07
[2020-09-10] MEDS ORDERED: CHERRY SYRUP 10 ML UDC PO ONE (10:02)
[2020-09-10] MEDS ORDERED: DEXAMETHASONE 10 MG/ML VIAL PO STA (10:02)
[2020-09-10] MEDS ORDERED: ACETAMINOPHEN 325 MG TABLET PO STA (10:02)
[2020-09-10] MEDS ORDERED: methocarbamoL 500 MG TABLET PO STA (10:02)
[2020-09-10] MEDS ORDERED: HYDROcod/ACETAM 5/325 MG TABLET PO STA (10:02)
--- NOTE | 2020-09-10 10:51 | CT Report ---
PROCEDURE: CERVICAL SPINE WO INDICATIONS: ongoing neck pain, worse few days TECHNIQUE: Noncontrast 3 mm thick sections acquired from the skull base to the T4 level. Sagittal and coronal r eformats were then constructed. For radiation dose reduction, the following was used: automated exp osure control, adjustment of mA and/or kV according to patient size. COMPARISON: CT cervical spine, 01/22/2020. FINDINGS: Image quality: Excellent. Bones: No fractures or dislocations. There is grade 1 anterolisthesis of C5 on C6. Degenerative dis c disease is present, severe at C6-7 and C7-T1, moderate at C3-C4 and C5-C6. There is severe left dionte antooccipital joint degeneration. Bilateral facet arthropathy throughout the cervical spine, most pro nounced at C3-C4, C4-C5, C5-C6 and C6-C7 on the left. There is yhes-jo-xnoccomf central canal stenosi s at C3-C4, C6-C7 and C7-T1. Multilevel foraminal stenoses, moderate to severe at C3-4-C5 on the left , C5-C6 bilaterally, C6-C7 bilaterally, and C7-T1 laterally. Visualized superior ribs are intact. Soft tissues: Prevertebral soft tissues are normal in thickness. No paravertebral hematomas. No ap ical pneumothoraces. IMPRESSION: 1. No acute osseous amenities. 2. Interval degenerative disc and facet disease in lumbar spine. 3. Buny-wa-hvlcegu canal stenosis at C3-C4, C6-7 and C7 and C7-T1. 4. Multilevel foraminal stenoses as described. 5. Severe left atlantooccipital joint degeneration. Reviewed by: Maryann De La Torre MD on 09/10/2020 10:50 AM PST Approved by: Maryann De La Torre MD on 09/10/2020 10:50 AM PST Station ID: [id number]
[2020-09-10 11:04] VITALS: BP 130/95
== END 2020-09-10 11:07 | disposition home or self-care (01) ==
LOC: ED 09:04
DX: M47.812 Spondylosis without myelopathy or radiculopathy, cervical region (principal); M50.31 Other cervical disc degeneration, high cervical region; M48.02 Spinal stenosis, cervical region; I10 Essential (primary) hypertension; E11.9 Type 2 diabetes mellitus without complications; Z79.84 Long term (current) use of oral hypoglycemic drugs; Z79.01 Long term (current) use of anticoagulants
CPT/HCPCS: 72125; 99284; A9270

== ENCOUNTER 2021-01-21 11:41 | Emergency (ER) | payer OTHER ==
[2021-01-21 11:49] VITALS: BP 171/83
--- NOTE | 2021-01-21 12:34 | ED Physician Documentation ---
History of Present Illness - Stated complaint Stated Complaint: R HAND SPASM - Chief complaint Chief Complaint: Trauma Ext - History obtained from History obtained from: Patient - History of Present Illness Timing: How many weeks ago (1) Pain level max: 5 Pain level now: 4 - Additonal information Additional information: Patient is a 70-year-old male that states he tripped and fell about a week ago injuring the right hand, specifically the right third digit. Now feels like he cannot extend it fully. Worse with movement, better with rest. No numbness or tingling. No bruising. No swelling. Patient is right-handed Review of Systems Constitutional: denies: Fever, Chills Respiratory: denies: Cough GI: denies: Nausea, Vomiting, Diarrhea PD PAST MEDICAL HISTORY - Past Medical History Cardiovascular: Hypertension, High cholesterol Respiratory: None Neuro: None Endocrine/Autoimmune: Type 2 diabetes GI: None : None HEENT: None Psych: None Musculoskeletal: None Derm: None - Past Surgical History Past Surgical History: Yes Ortho: Hip replacement Cardiovascular: Other - Present Medications Home Medications: Ambulatory Orders Medication Instructions Recorded Confirmed Ondansetron Odt [Zofran] 4 mg TL Q6H PRN #10 tablet 11/25/15 Pravastatin [Pravachol] 1 mg PO DAILY 11/25/15 11/25/15 Vit A Palm,D3 in Cod Liver Oil [Sv 1 mg PO DAILY 11/25/15 11/25/15 Cod Liver Oil Softgel] Warfarin [Coumadin] 7.5 mg PO DAILY 11/25/15 11/25/15 atenoloL [Tenormin] 1 mg PO DAILY 11/25/15 11/25/15 metFORMIN [Glucophage] 1 mg PO BID 11/25/15 11/25/15 Hydrocodone/Acetaminophen [[place] 1 each PO Q6H PRN #20 tablet 06/15/16 5-325 Tablet] Mupirocin 1 applic TP TID #15 oint...g. 06/15/16 Clindamycin HCl [Clindamycin 300MG 300 mg PO Q6H #28 capsule 04/16/19 CAP] Hydrocodone/Acetaminophen [[place] 1 each PO Q6H PRN #15 tablet 04/29/19 5-325 Tablet] HYDROcod/ACETAM 5/325 [[place] 5/325] 1 ea PO Q6H PRN #15 tablet 12/29/20 dexAMETHasone [Decadron] 4 mg PO DAILY #5 tablet 09/10/20 tiZANidine [Zanaflex] 4 mg PO BID PRN #20 tablet 09/10/20 - Allergies Allergies/Adverse Reactions: Allergies Allergy/AdvReac Type Severity Reaction Status Date / Time No Known Drug Allergies Allergy Verified 01/21/21 11:44 - Social History Does the pt smoke?: No Smoking Status: Never smoker Does the pt drink ETOH?: No Does the pt have substance abuse?: Yes - Immunizations Immunizations are current?: Yes - POLST Patient has POLST: No PD ED PE NORMAL - Vitals Vital signs reviewed: Yes - General General: Alert and oriented X 3, No acute distress - HEENT HEENT: Moist mucous membranes - Derm Derm: Warm and dry - Extremities Extremities: Other (Tender to palpation near the MCP joint of the right third digit. Limited range of motion, full flexion but limited extension. Neurovascularly intact. No deformity. Otherwise no tenderness) - Neuro Neuro: Alert and oriented X 3 Results - Vitals Vitals: Vital Signs - 24 hr 01/21/21 11:45 Temperature 36.7 C Heart Rate 72 Respiratory 16 Rate Blood Pressure 171/83 H O2 Saturation 98 Oxygen O2 Source Room air - Rads (name of study) Right hand x-ray Radiology: Prelim report reviewed, EMP read contemporaneously, See rad report PD MEDICAL DECISION MAKING - ED course Complexity details: reviewed results, re-evaluated patient, considered differential, d/w patient ED course: No acute findings on x-ray. Patient appears to have a trigger finger on examination. We will splint for comfort and have him follow-up with orthopedics. Patient counseled regarding signs and symptoms for which I believe and urgent re-evaluation would be necessary. Patient with good understanding of and agreement to plan and is comfortable going home at this time This document was made in part using voice recognition software. While efforts are made to proofread this document, sound alike and grammatical errors may occur. Departure - Departure Disposition: 01 Home, Self Care Clinical Impression: Trigger finger Qualifiers: Trigger finger location: middle finger Laterality: right Qualified Code(s): M65.331 - Trigger finger, right middle finger Condition: Good Instructions: Trigger Finger, Trigger Finger Tx Follow-Up: [facility] [Provider Group] - Within 1 week Comments: Wear the splint for comfort. Follow-up with orthopedics in 1 to 2 weeks for repeat evaluation. And they may need to perform injections into your finger if this does not resolve on its own.
--- NOTE | 2021-01-21 14:31 | XRAY Report ---
PROCEDURE: Hand 3 View RT INDICATIONS: fall, R hand pain TECHNIQUE: 3 views of the hand(s) acquired. COMPARISON: None FINDINGS: Bones: No fractures or dislocations. No suspicious bony lesions. Multidigit IP degenerative narrow ing. Old fourth metacarpal fracture. Soft tissues: No suspicious soft tissue calcifications. IMPRESSION: IP degenerative narrowing consistent with arthritis. No visualized acute fracture or dislocation. How ever, occult injury cannot be excluded. Recommend short interval imaging follow-up in 7-10 days as cl inically indicated for additional evaluation. Preliminary report was given to Dr. Korey Sequeira on 01/21/2021 at 1:30 PM. Reviewed by: Marleny Osborne MD on 01/21/2021 2:29 PM PDT Approved by: Marleny Osborne MD on 01/21/2021 2:29 PM PDT Station ID: [id number]
== END 2021-01-21 12:55 | disposition home or self-care (01) ==
LOC: ED 11:41
DX: M65.331 Trigger finger, right middle finger (principal); W01.10XA Fall on same level from slipping, tripping and stumbling with subsequent striking against unspecified object, initial encounter; Y93.01 Activity, walking, marching and hiking; I10 Essential (primary) hypertension; E11.9 Type 2 diabetes mellitus without complications; Z79.84 Long term (current) use of oral hypoglycemic drugs; Z79.01 Long term (current) use of anticoagulants
CPT/HCPCS: 99282; 99283

== ENCOUNTER 2021-11-28 08:00 | Outpatient (CLI) | payer MEDICARE, OTHER ==
--- NOTE | 2021-11-28 12:16 | XRAY Report ---
PROCEDURE: Ribs w/PA Chest RT INDICATIONS: CHEST WALL PAIN TECHNIQUE: 3 views of the right ribs were acquired, along with a single view chest. COMPARISON: Reference is made to the CT chest dated January 22, 2020 FINDINGS: SUPPORT DEVICES: None. LUNGS/PLEURA: No focal consolidation, pleural effusion or space-occupying pneumothorax. MEDIASTINUM: The cardiomediastinal silhouette is within normal limits. BONES/SOFT TISSUES: No chest wall emphysema. No acute, displaced right rib fracture. IMPRESSION: 1.No acute abnormality. Reviewed by: Brandon Rudd MD on 11/28/2021 12:15 PM PDT Approved by: Brandon Rudd MD on 11/28/2021 12:15 PM PDT Station ID: [id number]
== END 2021-11-28 23:59 ==
LOC: DI.N 08:00
PROVIDERS: ATTEND Physician Assistant
DX: R07.89 Other chest pain (principal)

== ENCOUNTER 2021-12-01 11:35 | Emergency (ER) | payer MEDICARE, OTHER ==
[2021-12-01 11:47] VITALS: BP 156/65
--- NOTE | 2021-12-01 12:06 | ED Physician Documentation ---
PD HPI BACK PAIN - Stated complaint Stated Complaint: BACK PX - Chief complaint Chief Complaint: Trauma Ch/Bk - History obtained from History obtained from: Patient - History of Present Illness Timing - onset: How many days ago (3) Timing - duration: Days (3) Timing - details: Abrupt onset, Still present Location: Mid, Right Quality: Pain, Sharp, Aching Associated symptoms: No: Fever, Weakness, Numbness Worsened by: Movement Contributing factors: Trauma (fell off balance and landed right ribs/lower thoracic area against furniture edge with pain right lower ribs and flank since. Seen at walk in with xray ribs negative, but still having deeper pain with movement.) Similar symptoms before: Has not had sx before Recently seen: Not recently seen Review of Systems Constitutional: denies: Fever, Chills Nose: denies: Rhinorrhea / runny nose, Congestion Throat: denies: Sore throat Cardiac: reports: Chest pain / pressure. denies: Palpitations Respiratory: denies: Dyspnea, Cough GI: reports: Nausea. denies: Abdominal Pain, Vomiting, Diarrhea : denies: Hematuria PD PAST MEDICAL HISTORY - Past Medical History Cardiovascular: Hypertension, High cholesterol Respiratory: None Neuro: None Endocrine/Autoimmune: Type 2 diabetes GI: None : None HEENT: None Psych: None Musculoskeletal: None Derm: None - Past Surgical History Past Surgical History: Yes Ortho: Hip replacement Cardiovascular: Other - Present Medications Home Medications: Ambulatory Orders Medication Instructions Recorded Confirmed Ondansetron Odt [Zofran] 4 mg TL Q6H PRN #10 tablet 11/25/15 Pravastatin [Pravachol] 1 mg PO DAILY 11/25/15 11/25/15 Vit A Palm,D3 in Cod Liver Oil [Sv 1 mg PO DAILY 11/25/15 11/25/15 Cod Liver Oil Softgel] Warfarin [Coumadin] 7.5 mg PO DAILY 11/25/15 11/25/15 atenoloL [Tenormin] 1 mg PO DAILY 11/25/15 11/25/15 metFORMIN [Glucophage] 1 mg PO BID 11/25/15 11/25/15 Hydrocodone/Acetaminophen [[place] 1 each PO Q6H PRN #20 tablet 06/15/16 5-325 Tablet] Mupirocin 1 applic TP TID #15 oint...g. 06/15/16 Clindamycin HCl [Clindamycin 300MG 300 mg PO Q6H #28 capsule 04/16/19 CAP] Hydrocodone/Acetaminophen [[place] 1 each PO Q6H PRN #15 tablet 04/29/19 5-325 Tablet] HYDROcod/ACETAM 5/325 [[place] 5/325] 1 ea PO Q6H PRN #15 tablet 09/10/20 dexAMETHasone [Decadron] 4 mg PO DAILY #5 tablet 09/10/20 tiZANidine [Zanaflex] 4 mg PO BID PRN #20 tablet 09/10/20 Acetaminophen [Acetaminophen Extra 500 mg PO QID PRN #40 tablet 12/01/21 Strength] oxyCODONE [Roxicodone] 5 mg PO Q6H PRN #15 tablet 12/01/21 - Allergies Allergies/Adverse Reactions: Allergies Allergy/AdvReac Type Severity Reaction Status Date / Time No Known Drug Allergies Allergy Verified 12/01/21 11:47 - Social History Does the pt smoke?: No Smoking Status: Never smoker Does the pt drink ETOH?: No Does the pt have substance abuse?: Yes - Immunizations Immunizations are current?: Yes - POLST Patient has POLST: No PD ED PE NORMAL - Vitals Vital signs reviewed: Yes - General General: Alert and oriented X 3, Well developed/nourished, Other (appears guarded for ROM of the thoracic back and splinting breaths right side. ) - Neck Neck: Supple, no meningeal sign, No bony TTP - Cardiac Cardiac: RRR, No murmur - Respiratory Respiratory: No respiratory distress, Clear bilaterally - Abdomen Abdomen: Normal bowel sounds, Soft, Non distended, No organomegaly, Other (tender RUQ palpating in liver area. ) - Back Back: Other (right CVA tender to plapation. Lower ribs tender without crepitance. Spinal tenderness lower thoracic area without deformity. No bruising seen. ) - Derm Derm: Normal color, Warm and dry, No rash - Extremities Extremities: Normal ROM s pain, No edema, No calf tenderness / cord - Neuro Neuro: Alert and oriented X 3, No motor deficit, No sensory deficit, Normal speech Results - Vitals Vitals: Oxygen O2 Source Room air - Rads (name of study) chest CT Radiology: Prelim report reviewed (no acute process. no fractures nor organ injury. ), See rad report PD MEDICAL DECISION MAKING - ED course Complexity details: reviewed results, considered differential, d/w patient Departure - Departure Disposition: 01 Home, Self Care Clinical Impression: Anticoagulant long-term use, Mid back pain on right side Fall from slip, trip, or stumble Qualifiers: Encounter type: initial encounter Qualified Code(s): W01.0XXA - Fall on same level from slipping, tripping and stumbling without subsequent striking against object, initial encounter Condition: Stable Record reviewed to determine appropriate education?: Yes Instructions: ED Contusion Back Follow-Up: Elyse Grant MD [Primary Care Provider] - Prescriptions: Acetaminophen [Acetaminophen Extra Strength] 500 mg PO QID PRN #40 tablet PRN Reason: Pain oxyCODONE [Roxicodone] 5 mg PO Q6H PRN #15 tablet PRN Reason: Pain Comments: Your CT scan is good without any signs of spinal or rib fractures and no signs of disc abnormalities obviously on the spine. No signs of kidney or lung injury. They compared with the CT scan from 2019 and did not show any real interval changes. Presume you have some bruising and injury of the muscles and soft tissue. Activity as tolerated. I would suggest acetaminophen/Tylenol 4 times daily regularly for the next several days to a week and then add oxycodone half to 1 tablet every 4-6 hours if needed for worse pain. Consider a mild stool softener so you do not get constipated from the medicine and inactivity. Continue your other usual medicines. Recheck if not improving well over the next several days to week. I transmitted your prescription to [facility] in [place]. I am prescribing a short course of narcotic pain medication for you. These are potentially dangerous and addictive medications that should be used carefully. These medications may constipate you. Take an [id number]-dwjbtfu stool softener such as docusate twice daily with plenty of water while taking these medications. If you go 24 hours without a bowel movement, take [id number] MiraLAX, per package instructions. Do not drink or drive while taking these medications. If you received narcotic or sedating medications while in the emergency department do not drive for 24 hours. Store this medication in a safe, secure place and out of reach of children. It is a violation of federal law to give or sell this medication to another person or to use in a manner other than prescribed. The ED will not refill narcotic prescriptions, including prescriptions lost or stolen. You can dispose of unwanted medications at the [facility]'s office or at several pharmacies such as [facility]. Discharge Date/Time: 12/01/21 14:33
[2021-12-01] MEDS ORDERED: KETOROLAC 30 MG/ML VIAL IM STA (12:30)
--- NOTE | 2021-12-01 13:59 | CT Report ---
PROCEDURE: CHEST WO INDICATIONS: fall with lower thoracic back pain, R ribs. TECHNIQUE: Noncontrast 1mm axial images were acquired from the pulmonary apices to the posterior costophrenic an gles. Axial 5 mm soft tissue kernel reconstructions were performed as well as 8 mm axial MIP and cor onal and sagittal 5 mm reformations. For radiation dose reduction, the following was used: automate d exposure control, adjustment of mA and/or kV according to patient size. COMPARISON: Chest x-ray dated 11/28/2021. Chest CT dated 01/22/2020. FINDINGS: Image quality: Excellent. Lungs and pleura: No acute air space opacities. No significant change in septated cystic focus with in the left lower lobe medially measuring roughly 48 mm. No pleural effusions or pneumothorax. Centr al and peripheral airways are patent and normal in caliber. Mediastinum: Heart size is normal. Moderate calcification of the coronary vasculature. No pericardi al effusion. No mediastinal adenopathy by size criteria. No change in mild dilatation of the ascend ing thoracic ureter measuring roughly 43 mm. Thoracic aorta and central pulmonary arteries are otherw ise normal in size. Esophagus is normal in caliber. No hiatal hernia. Bones and chest wall: No suspicious bony lesions. No vertebral body compression fractures. No axil jose or supraclavicular adenopathy by size criteria. The thyroid is normal in size and there are no incidental findings. Abdomen: Visualized portions of the upper abdomen demonstrate a nonobstructing 4 mm calculus within the superior pole right kidney. IMPRESSION: 1. No acute process. 2. No change in cystic focus within the left lower lobe, possibly related to prior trauma or infectio n/inflammation. 3. Coronary artery disease. 4. No acute process involving the thoracic spine and ribs. Reviewed by: Inder Hernández MD on 12/01/2021 1:57 PM PDT Approved by: Inder Hernández MD on 12/01/2021 1:57 PM PDT Station ID: [id number]
== END 2021-12-01 14:33 | disposition home or self-care (01) ==
LOC: ED 11:35
DX: M54.6 Pain in thoracic spine (principal); W01.0XXA Fall on same level from slipping, tripping and stumbling without subsequent striking against object, initial encounter; I10 Essential (primary) hypertension; E11.9 Type 2 diabetes mellitus without complications; Z79.84 Long term (current) use of oral hypoglycemic drugs; Z79.01 Long term (current) use of anticoagulants
CPT/HCPCS: 96372; 99282; 99284

== ENCOUNTER 2022-03-13 09:50 | Emergency (ER) | payer MEDICARE, OTHER ==
--- NOTE | 2022-03-13 10:17 | ED Physician Documentation ---
PD HPI CHEST PAIN - Stated complaint Stated Complaint: HIGH BLOOD - Chief complaint Chief Complaint: Cardiac - History obtained from History obtained from: Patient - History of Present Illness Timing - onset: How many days ago (3 days ago ran out of his atenolol and has noted heart rate and BP being a bit elevated. [facility] not get to him for 2-3 weeks through mail/etc. Referred to ER.) Timing - onset during: Light activity Timing - duration: Days Timing - details: Gradual onset, Waxing and waning Quality: Pressure. No: Tightness, Aching Location: Substernal Worsened by: Exertion Associated symptoms: Palpitations. No: Shortness of air, Nausea, Feeling faint / dizzy Similar symptoms before: Diagnosis (when pressure and heart rate are higher. History of atrial fib.) Review of Systems Constitutional: denies: Fever, Chills Nose: denies: Rhinorrhea / runny nose, Congestion Throat: denies: Sore throat Cardiac: reports: Palpitations. denies: Pedal edema, Calf pain Respiratory: denies: Dyspnea, Cough PD PAST MEDICAL HISTORY - Past Medical History Cardiovascular: Hypertension, High cholesterol, Atrial fibrillation Respiratory: None Neuro: None Endocrine/Autoimmune: Type 2 diabetes GI: None : None HEENT: None Psych: None Musculoskeletal: None Derm: None - Past Surgical History Past Surgical History: Yes Ortho: Hip replacement Cardiovascular: Other - Present Medications Home Medications: Ambulatory Orders Medication Instructions Recorded Confirmed Pravastatin [Pravachol] 1 mg PO DAILY 11/25/15 03/13/22 Vit A Palm,D3 in Cod Liver Oil [Sv 1 mg PO DAILY 11/25/15 03/13/22 Cod Liver Oil Softgel] atenoloL [Tenormin] 1 mg PO DAILY 11/25/15 03/13/22 metFORMIN [Glucophage] 1 mg PO BID 11/25/15 03/13/22 Atenolol [Tenormin] 50 mg PO DAILY #30 tablet 03/13/22 Dabigatran Etexilate Mesylate 150 mg PO BID 03/13/22 03/13/22 [Pradaxa] Pantoprazole [Protonix] 40 mg PO DAILY 30 Days #30 tablet 03/13/22 lamoTRIgine [Subvenite] 200 mg PO HS 03/13/22 03/13/22 - Allergies Allergies/Adverse Reactions: Allergies Allergy/AdvReac Type Severity Reaction Status Date / Time No Known Drug Allergies Allergy Verified 03/13/22 09:59 - Social History Does the pt smoke?: No Smoking Status: Never smoker Does the pt drink ETOH?: No Does the pt have substance abuse?: Yes - Immunizations Immunizations are current?: Yes - POLST Patient has POLST: No PD ED PE NORMAL - Vitals Vital signs reviewed: Yes - General General: Alert and oriented X 3, No acute distress, Well developed/nourished - Cardiac Cardiac: No murmur. No: RRR (irregular but rate controlled. ) - Respiratory Respiratory: No respiratory distress, Clear bilaterally - Abdomen Abdomen: Soft, Non tender - Derm Derm: Normal color, Warm and dry - Extremities Extremities: No tenderness to palpate, Normal ROM s pain, No edema, No calf tenderness / cord - Neuro Neuro: Alert and oriented X 3, No motor deficit, Normal speech Results - Vitals Vitals: Vital Signs - 24 hr 03/13/22 03/13/22 09:54 11:31 Temperature 36.4 C L Heart Rate 55 L 95 Respiratory 18 18 Rate Blood Pressure 155/82 H 142/80 H O2 Saturation 98 98 Oxygen O2 Source Room air - EKG (time done) 10:42 Rate: Rate (enter#) (104) Rhythm: Atrial fibrillation Ischemia: Normal ST segments, Non specific changes. No: ST elevation c/w ischemia, ST depression PD MEDICAL DECISION MAKING - ED course Complexity details: considered differential (patient mainly here for Rx of his ATenolol and Pantoprazole as the [facility] was not going to be getting his meds to him for 2-3 weeks. ), d/w patient Departure - Departure Disposition: 01 Home, Self Care Clinical Impression: Elevated blood pressure reading, Atrial fibrillation Condition: Stable Record reviewed to determine appropriate education?: Yes Instructions: ED Afib Follow-Up: Farhat Vargas MD [Primary Care Provider] - Prescriptions: Pantoprazole [Protonix] 40 mg PO DAILY 30 Days #30 tablet Atenolol [Tenormin] 50 mg PO DAILY #30 tablet Comments: I wrote prescriptions for your a atenolol 50 mg and pantoprazole 40 mg daily. This is [facility] an they should take care of subsequent refills. Continue your other usual medicines. Follow-up with your primary care. Discharge Date/Time: 03/13/22 11:32
[2022-03-13] MEDS ORDERED: atenoloL 25 MG TABLET PO STA (10:36)
[2022-03-13] MEDS ORDERED: PANTOPRAZOLE 40 MG TABLET PO STA (10:36)
[2022-03-13 11:32] VITALS: BP 142/80
== END 2022-03-13 11:32 | disposition home or self-care (01) ==
LOC: ED 09:50
DX: I10 Essential (primary) hypertension (principal); I48.91 Unspecified atrial fibrillation; E11.9 Type 2 diabetes mellitus without complications; Z79.84 Long term (current) use of oral hypoglycemic drugs; Z79.01 Long term (current) use of anticoagulants
CPT/HCPCS: 93005; 99283; 99284; A9270

== ENCOUNTER 2022-06-28 14:21 | Emergency (ER) | payer OTHER ==
[2022-06-28 14:45] LABS: BASOPHILS % (AUTO) 0.7 %; EOSINOPHILS # (AUTO) 0.1 10^3/uL (0.0-0.7); HCT - HEMATOCRIT 35.9 % (42.0-52.0); HGB - HEMOGLOBIN 12.1 g/dL (14.0-18.0); LYMPHOCYTES # (AUTO) 1.2 10^3/uL (1.5-3.5); LYMPHOCYTES % (AUTO) 20.1 %; MEAN CORPUSCULAR HEMOGLOBIN 32.4 pg (27.0-31.0); MEAN CORPUSCULAR HGB CONC 33.7 g/dL (32.0-36.0); MEAN PLATELET VOLUME 9.4 fL (7.4-11.4); MONOCYTES # (AUTO) 0.4 10^3/uL (0.0-1.0); MONOCYTES % (AUTO) 5.9 %; NEUTROPHILS # (AUTO) 4.2 10^3/uL (1.5-6.6); NEUTROPHILS % (AUTO) 71.1 %; PLT - PLATELET COUNT 180 10^3/uL (130-450); RED BLOOD COUNT 3.74 10^6/uL (4.70-6.10); RED CELL DISTRIBUTION WIDTH 13.5 % (12.0-15.0); WHITE BLOOD COUNT 5.9 x10^3/uL (4.8-10.8)
--- NOTE | 2022-06-28 14:47 | ED Physician Documentation ---
History of Present Illness - Stated complaint Stated Complaint: LOW BLOOD PRESSURE - Chief complaint Chief Complaint: Cardiac - Additonal information Additional information: 71-year-old male who has a past medical history most significant for hypertension, IDDMII, and atrial fibrillation, anticoagulated on Pradaxa presents to the emergency department for a sensation of feeling lightheaded near syncope and with lower than typical blood pressures. He did undergo cardiac stent placement on 24 June at the [facility]. He was stented to the ramus. On discharge he did not have a diagnosis of heart failure or AMI. Patient record his blood pressures twice daily and has a record of these. They are typically in the 120s to the 150s over 60s and 70s. This morning they were noted to be in the 90s over 50s. However here in the emergency department on presentation he is normotensive. There have been no fevers. Patient is currently taking aspirin and Plavix. He denies chest pain or shortness of air. He denies vomiting or diarrhea. Just reports feeling very fatigued. He is compliant with all of his medications. Review of Systems Constitutional: denies: Fever, Chills Eyes: reports: Reviewed and negative Nose: reports: Reviewed and negative Throat: reports: Reviewed and negative Cardiac: denies: Chest pain / pressure, Palpitations, Pedal edema, Calf pain Respiratory: reports: Reviewed and negative GI: reports: Reviewed and negative : reports: Reviewed and negative Neurologic: reports: Near syncope. denies: Focal weakness, Numbness, Difficulty speaking, Syncope, Seizure, Head injury, LOC Psychiatric: reports: Reviewed and negative PD PAST MEDICAL HISTORY - Past Medical History Cardiovascular: Hypertension, High cholesterol, Atrial fibrillation Respiratory: None Neuro: None Endocrine/Autoimmune: Type 2 diabetes GI: None : None HEENT: None Psych: None Musculoskeletal: None Derm: None - Past Surgical History Past Surgical History: Yes Ortho: Hip replacement Cardiovascular: Other - Present Medications Home Medications: Ambulatory Orders Medication Instructions Recorded Confirmed Pravastatin [Pravachol] 1 mg PO DAILY 11/25/15 03/13/22 Vit A Palm,D3 in Cod Liver Oil [Sv 1 mg PO DAILY 11/25/15 03/13/22 Cod Liver Oil Softgel] atenoloL [Tenormin] 1 mg PO DAILY 11/25/15 03/13/22 metFORMIN [Glucophage] 1 mg PO BID 11/25/15 03/13/22 Atenolol [Tenormin] 50 mg PO DAILY #30 tablet 03/13/22 Dabigatran Etexilate Mesylate 150 mg PO BID 03/13/22 03/13/22 [Pradaxa] Pantoprazole [Protonix] 40 mg PO DAILY 30 Days #30 tablet 03/13/22 lamoTRIgine [Subvenite] 200 mg PO HS 03/13/22 03/13/22 - Allergies Allergies/Adverse Reactions: Allergies Allergy/AdvReac Type Severity Reaction Status Date / Time No Known Drug Allergies Allergy Verified 03/13/22 09:59 - Social History Does the pt smoke?: No Smoking Status: Never smoker Does the pt drink ETOH?: No Does the pt have substance abuse?: Yes - Immunizations Immunizations are current?: Yes - POLST Patient has POLST: No PD ED PE NORMAL - General General: Alert and oriented X 3, No acute distress - HEENT HEENT: Atraumatic, Moist mucous membranes - Neck Neck: Supple, no meningeal sign, No JVD - Cardiac Cardiac: No murmur, No gallop, Strong equal pulses. No: RRR (Irregularly irregular heart rate. No murmur.) - Respiratory Respiratory: No respiratory distress, Clear bilaterally - Abdomen Abdomen: Normal bowel sounds, Soft, Non tender - Back Back: No CVA TTP, No spinal TTP - Derm Derm: Normal color, Warm and dry, No rash - Extremities Extremities: No deformity, No tenderness to palpate, Normal ROM s pain - Neuro Neuro: Alert and oriented X 3, project accountant 2-12 intact Eye Opening: Spontaneous Motor: Obeys Commands Verbal: Oriented GCS Score: 15 Results - Vitals Vitals: Vital Signs - 24 hr 06/28/22 06/28/22 06/28/22 14:26 15:06 15:22 Temperature 37.0 C Heart Rate 88 68 70 Heart Rate [ 83 Sitting] Heart Rate [ 88 Standing] Heart Rate [ 68 Supine] Respiratory 17 18 20 Rate Blood Pressure 124/68 105/63 105/63 Blood Pressure 116/69 [Sitting] Blood Pressure 105/63 [Standing] Blood Pressure 107/67 [Supine] O2 Saturation 96 98 95 Oxygen O2 Source Room air - EKG (time done) 1448 Rate: Rate (enter#) (72) Rhythm: Atrial fibrillation [place]: Normal Intervals: No: Prolonged QT QRS: Normal Ischemia: Non specific changes Compare to prior EKG: Unchanged from prior EKG Computer interpretation: Agree with computer - Labs Labs: Laboratory Tests 06/28/22 06/28/22 06/28/22 14:39 14:39 14:39 WBC 5.9 RBC 3.74 L Hgb 12.1 L Hct 35.9 L MCV 96.0 H MCH 32.4 H MCHC 33.7 RDW 13.5 Plt Count 180 MPV 9.4 Neut # (Auto) 4.2 Lymph # (Auto) 1.2 L [place] # (Auto) 0.4 Eos # (Auto) 0.1 Baso # (Auto) 0.0 Absolute Nucleated RBC 0.00 Nucleated RBC % 0.0 Sodium 133 L Potassium 4.3 Chloride 104 Carbon Dioxide 21 Anion Gap 8.0 BUN 25 H Creatinine 1.0 Estimated GFR (MDRD) 73 L Glucose 163 H Lactic Acid 1.8 Calcium 9.1 Total Bilirubin 1.4 H AST 26 ALT 19 Alkaline Phosphatase 62 Total Protein 6.5 L Albumin 4.1 Globulin 2.4 Albumin/Globulin Ratio 1.7 Lipase 37 PD MEDICAL DECISION MAKING - ED course Complexity details: reviewed results, re-evaluated patient, considered differential, d/w patient ED course: 71-year-old male has a longstanding history of hypertension, diabetes, atrial fibrillation anticoagulated on Pradaxa presents to the emergency department for evaluation of feeling lightheaded and having near syncope. He did undergo a cardiac stent placement at the [facility] on 24 June. Patient is denying any dyspnea or shortness of air. Currently taking aspirin, Plavix as well as the Pradaxa. Patient had reported that his blood Pressures at home were in the 90s over 50s. However here in the emergency department he is essentially been normotensive. A lactate was negative. Given lack of fevers we did defer blood cultures. Evaluation of his lab work reveals a mild anemia with a hemoglobin of 12. This is not likely contributing to the symptoms. There were no worrisome electrolyte abnormalities. A check of his orthostatic blood pressures was also essentially normal. He was given a liter of crystalloid here in the ER. On reevaluation he reports that he is feeling better. Patient is requesting to be discharged home and is in stable condition. I am encouraging him to have a very close follow-up with his primary care provider as well as his buck swamper. He may benefit from reevaluation of his antihypertensive medications to determine if an adjustment should be made. Otherwise emergent return precautions were discussed should he develop chest pain, severe dyspnea or have any syncopal episodes. Departure - Departure Disposition: 01 Home, Self Care Clinical Impression: Near syncope Condition: Stable Record reviewed to determine appropriate education?: Yes Instructions: ED Near Syncope Unkn Comments: Braeden middleton were seen today in the emergency department because at home he was feeling lightheaded and dizzy and had lower than you would expect blood pressur es. You did have a cardiac stent placed on 24 June. Here in the emergency department your EKG does show atrial fibrillation but the rate is well controlled. Your blood pressures have been normal here in the emergency department and when we check your blood pressures in various positions called orthostatics, they are normal. Your blood counts and electrolytes on blood testing did not show any worrisome abnormal findings. I do make the recommendation that you follow closely with your buck swamper to determine if you would benefit from further evaluation such as a reduction in your blood pressure medication or evaluation with an echocardiogram. Return to the emergency department if you develop any chest pain or chest pressure, have any fainting episodes or any other worrisome emergent concerns.
[2022-06-28 14:57] LABS: ALBUMIN 4.1 g/dL (3.2-5.5); ALBUMIN/GLOBULIN RATIO 1.7 (1.0-2.2); BILIRUBIN,TOTAL 1.4 mg/dL (0.2-1.0); CALCIUM 9.1 mg/dL (8.5-10.3); POTASSIUM 4.3 mmol/L (3.5-5.0); TOTAL PROTEIN 6.5 g/dL (6.7-8.2)
[2022-06-28 15:08] VITALS: BP 105/63
--- NOTE | 2022-06-28 15:15 | XRAY Report ---
PROCEDURE: Chest 1 View X-Ray INDICATIONS: ITS.REASON: Chest Pain TECHNIQUE: One view of the chest was acquired. COMPARISON: 11/28/2021 FINDINGS: Surgical changes and devices: None. Lungs and pleura: Vascular crowding versus interstitial prominence. Lung volumes are slightly low. N o pleural effusion Mediastinum: Mediastinal contours appear normal. Heart size is normal. Bones and chest wall: No suspicious bony lesions. Overlying soft tissues appear unremarkable. IMPRESSION: Interstitial prominence could represent vascular crowding from low lung volumes, with differential in cluding atypical infection and mild edema. No pleural effusion or dense consolidation. Reviewed by: Jeb Jay MD on 06/28/2022 3:13 PM PDT Approved by: Jeb Jay MD on 06/28/2022 3:13 PM PDT Station ID: [id number]
[2022-06-28] MEDS ORDERED: SODIUM CHLORIDE 0.9% 1,000 ML IV STA (15:16)
== END 2022-06-28 15:56 | disposition home or self-care (01) ==
LOC: ED 14:21
DX: R55 Syncope and collapse (principal); I10 Essential (primary) hypertension; I48.91 Unspecified atrial fibrillation; Z79.01 Long term (current) use of anticoagulants; E11.9 Type 2 diabetes mellitus without complications; Z79.84 Long term (current) use of oral hypoglycemic drugs
CPT/HCPCS: 36415; 80053; 83605; 83690; 85025; 93005; 99284

== ENCOUNTER 2023-04-27 10:13 | Emergency (ER) | payer OTHER ==
--- NOTE | 2023-04-27 11:06 | ED Physician Documentation ---
History of Present Illness - Stated complaint Stated Complaint: RT LEG SWELLING - Chief complaint Chief Complaint: Ext Problem - Additonal information Additional information: 72-year-old male presents emergency department for evaluation of right leg swelling which he has noticed now for about 6 months. He first noticed it after he had a stent placed in his heart in June 2022. He denies any falls or trauma. No recent travel. No history of DVT but he does have a history of A- fib for which she is anticoagulated on Pradaxa. He denies leg pain. No chest pain or shortness of air. 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 Review of Systems Constitutional: denies: Fever, Chills Cardiac: reports: Reviewed and negative Respiratory: reports: Reviewed and negative Skin: reports: Reviewed and negative Musculoskeletal: reports: Extremity swelling Neurologic: reports: Reviewed and negative PD PAST MEDICAL HISTORY - Past Medical History Past Medical History: Yes Cardiovascular: Hypertension, High cholesterol, Atrial fibrillation Respiratory: None Neuro: None Endocrine/Autoimmune: Type 2 diabetes GI: None : None HEENT: None Psych: None Musculoskeletal: None Derm: None - Past Surgical History Past Surgical History: Yes Ortho: Hip replacement Cardiovascular: Other - Present Medications Home Medications: Ambulatory Orders Medication Instructions Recorded Confirmed Pravastatin [Pravachol] 1 mg PO DAILY 11/25/15 04/27/23 Vit A Palm,D3 in Cod Liver Oil [Sv 1 mg PO DAILY 11/25/15 04/27/23 Cod Liver Oil Softgel] atenoloL [Tenormin] 1 mg PO DAILY 11/25/15 04/27/23 metFORMIN [Glucophage] 1 mg PO BID 11/25/15 04/27/23 Atenolol [Tenormin] 50 mg PO DAILY #30 tablet 03/13/22 04/27/23 Dabigatran Etexilate Mesylate 150 mg PO BID 03/13/22 04/27/23 [Pradaxa] Pantoprazole [Protonix] 40 mg PO DAILY 30 Days #30 tablet 03/13/22 04/27/23 lamoTRIgine [Subvenite] 200 mg PO HS 03/13/22 04/27/23 - Allergies Allergies/Adverse Reactions: Allergies Allergy/AdvReac Type Severity Reaction Status Date / Time No Known Drug Allergies Allergy Verified 03/13/22 09:59 - Social History Does the pt smoke?: No Smoking Status: Never smoker Does the pt drink ETOH?: No Does the pt have substance abuse?: Yes - Immunizations Immunizations are current?: Yes - POLST Patient has POLST: No PD ED PE NORMAL - General General: Alert and oriented X 3, No acute distress - Cardiac Cardiac: Strong equal pulses (2+ femoral and 2+ DP pulses bilaterally). No: RRR (Irregularly irregular) - Respiratory Respiratory: Clear bilaterally - Abdomen Abdomen: Normal bowel sounds - Back Back: No CVA TTP - Derm Derm: Normal color, Warm and dry - Extremities Extremities: No deformity, Normal ROM s pain. No: No edema (Mild swelling noted of the right lower leg without posterior calf pain tenderness. Is minimally swollen without really significant edema. He does have hemosiderin staining evident of PVD) - Neuro Neuro: Alert and oriented X 3 Eye Opening: Spontaneous Motor: Obeys Commands Verbal: Oriented GCS Score: 15 Results - Vitals Vitals: Vital Signs - 24 hr 04/27/23 10:19 Temperature 36.6 C Heart Rate 67 Respiratory 18 Rate Blood Pressure 127/72 O2 Saturation 97 Oxygen O2 Source Room air PD Medical Decision Making - ED course Complexity details: reviewed results, re-evaluated patient, d/w patient ED course: 72-year-old male presents emergency department for evaluation of 6 months right leg swelling. He initially noticed the swelling after he had completed stenting of a coronary artery for previous known history of MIs. Patient does have a history of atrial fibrillation and is anticoagulated on Pradaxa. No recent falls or trauma. On exam he is noted to have atrial fibrillation on auscultation. He does have some very mild right leg swelling in comparison to the left but no posterior calf pain tenderness. He has brisk cap refill and normal pulses in the femoral and DP regions. An ultrasound was completed which did not show evidence of a deep vein thrombosis. However the technologist remarked to me that she did feel the patient had a fair amount of arterial plaque. He does walk a lot each day as a dogger and states that occasionally he has pain with walking. I do query if he does have some arterial insufficiency related to this plaque that could be causative of his symptoms. I have advised the patient to discuss this concern with his PCP as he may benefit from referral to vascular surgery or other arterial imaging of the lower extremities. He is discharged home in stable condition with usual emergent return precautions discussed Departure - Departure Disposition: 01 Home, Self Care Clinical Impression: Swelling of right lower extremity Condition: Stable Comments: Braeden the ultrasound of your right leg did not show a deep vein thrombosis. The technologist did make note to me that you do have arterial plaque though this is likely not going to be on the formal ultrasound report. I do question whether you could have some arterial insufficiency as the cause of your right leg swelling. I would discuss this finding with your primary care doctor. You may benefit from referral to a vascular surgeon for further evaluation. Return to the ER if you develop any discoloration of the leg, develop numbness or tingling of the leg or develop sudden severe pain especially when walking. Forms: PCP List
[2023-04-27 13:25] VITALS: BP 125/75; O2SAT 98
--- NOTE | 2023-04-27 13:34 | Ultrasound Report ---
PROCEDURE: Duplex Ext Veins Right INDICATIONS: eval for dvt. r leg swelling X 2 weeks TECHNIQUE: Real-time imaging, as well as color and pulse Doppler interrogation, were performed of the lower extr emity deep veins from the inguinal ligament to the popliteal fossa. COMPARISON: None. FINDINGS: The deep veins are normally compressible, and free of intraluminal thrombus. Color and pu lse Doppler demonstrate normal phasic intraluminal flow. There is normal augmentation response to di stal compression maneuver. Suspected arterial atherosclerotic disease. IMPRESSION: Negative examination for DVT. Reviewed by: Jeb Jay MD on 04/27/2023 1:33 PM PDT Approved by: Jeb Jay MD on 04/27/2023 1:33 PM PDT Station ID: [id number]
== END 2023-04-27 13:17 | disposition home or self-care (01) ==
LOC: ED 10:13
DX: M79.89 Other specified soft tissue disorders (principal); I10 Essential (primary) hypertension; E78.00 Pure hypercholesterolemia, unspecified; I48.91 Unspecified atrial fibrillation; E11.9 Type 2 diabetes mellitus without complications; Z79.899 Other long term (current) drug therapy; Z79.84 Long term (current) use of oral hypoglycemic drugs; Z79.01 Long term (current) use of anticoagulants
CPT/HCPCS: 99283; 99284